=== PATIENT | female | born 1970 | race Caucasian/White ===

== ENCOUNTER 2021-05-31 13:59 | Outpatient (CLI) | payer OTHER | END 2021-05-31 14:00 | disposition home or self-care (01) | LOC: CSHMRI 13:59 | PROVIDERS: ATTEND Family Medicine | DX: S80.02XD Contusion of left knee, subsequent encounter (principal); M23.92 Unspecified internal derangement of left knee; S89.92XD Unspecified injury of left lower leg, subsequent encounter; M25.00 Hemarthrosis, unspecified joint; S82.035A Nondisplaced transverse fracture of left patella, initial encounter for closed fracture; S83.242A Other tear of medial meniscus, current injury, left knee, initial encounter ==